=== PATIENT | male | born 1965 | race Caucasian/White ===

== ENCOUNTER 2017-07-06 12:47 | Inpatient (IN) | payer BC, OTHER ==
[~2017-07-06] VITALS: Ht 180.3 cm; Wt 56.7 kg
--- NOTE | 2017-07-06 19:50 | NUR ---
Pre-admission assessment Patient is a 51-year old, male, seen at intake, AAOx4, no SOB and with moderate anxiety noted at this time. Discussed with patient admission policies of the unit. Patient is coherent and able to respond to questions appropriately. Patient reported that he is from [place]. Pt is ambulatory with steady gait. Pt reports using these substances: ETOH-beer daily at the current rate for the past 25 years and Cannabis smoking intermittently, once every 2 weeks on average, smoking 1-2 joints for the past 34 years. Vital signs taken and as follows: ZX=551/88, P=87, O2 sat on RA=99%, RR=20, T=98.4. Pt verbalized instructions and teachings regarding disposal of narcotic and other controlled home meds, unit protocols such as taking of vital signs Q4H and handling and disposal of contraband.
[2017-07-06 20:03] LABS: *AMPHETAMINE, URINE NEGATIVE (NEGATIVE); *BARBITURATE, URINE NEGATIVE (NEGATIVE); *CANNABINOID, URINE NEGATIVE (NEGATIVE); *COCCAINE, URINE NEGATIVE (NEGATIVE); *OPIATE, URINE NEGATIVE (NEGATIVE); *PHENCYCLIDINE SCREEN,URINE NEGATIVE (NEGATIVE)
[2017-07-06 20:10] VITALS: BP 152/90
--- NOTE | 2017-07-06 20:30 | NUR ---
ADMISSION Patient is a 51-year old, male, admitted and escorted by VENEER LAYER at 2009 to unit. Patient verbalized that he is from [place], works as a sign painter and lives in a trailer car with his brother. Skin check done, no open skin noted. Patient denies Suicidal Ideation nor Homicidal Ideation. No edema noted. Pt is ambulatory with steady gait. Pt stands 5'11" and weighs 125 pounds per standing scale. Vital signs are as follows: BP-152/89, T-98.4, P-846 RR-18 and SPO2 on RA=98%. Patient is AAOx4 and with no anxiety noted at this time. Lung sounds clear bilaterally upon auscultation. No cough noted and bowel sounds are present on all quadrants. PERRLA and pupils are 3 mm upon visual check. Pt has NKA, on Regular Diet and is Full Code. Pt reports withdrawal-induced seizures from Alcohol, first was in 05/2017 and the last was in 06/15/2017. Per pt, withdrawal symptoms are tremors, anxiety, hot flushes and fatigue. Pt reports using these substances daily: 1) ETOH (beer)-Started at age 17, patient reports consuming beer daily at the following rate for 25 years: a) on [id number] 16-0z beer, b) on weekends(Monday, Monday and Monday)-18-27 12-oz beer. Last drink was 07/02/2017, 12 of 16-oz beers. 2) Cannabis-Started at age 17, patient reports smoking intermittently, once every 2 weeks on average, smoking 1-2 joints for the past 34 years. Last use was 06/20/2017 and smoked 1 joint. Patient verbalized the he does not take other substances besides the one mentioned above. Patients UDS returned positive for Benzodiazepines. Patient informed that he was given Klonopin at the ER of [facility] in [place] yesterday when he drove himself to the ER due to vomiting. Patient informed PMHx of Anxiety, Alcohol Liver Disease and Delirium Tremens. Per pt, he only takes Aspirin 325 mg PO PRN daily everytime he has a headache. No PCP nor Psych MD as of the moment. Patient reports smoking cigarettes, about 15 cigarette sticks daily. Oriented patient to room and instructed with the use of the call light, placed within reach. Fall, universal, seizure and safety precautions implemented. No c/o significant pain at this time. All needs met. Information relayed to Dr. Chun. Patient refused PNA vaccine and Flu vaccine is out of season. CIWA=10. Will continue to monitor.
[2017-07-06 20:36] LABS: ALANINE AMINOTRANSFERASE 71 U/L (16-63); ALKALINE PHOSPHATASE 112 U/L (50-136); AMYLASE 77 U/L (25-115); ASPARTATE AMINOTRANSFERASE 65 U/L (15-37); BASOPHILS # (AUTO) 0.1 K/uL (0.0-8.0); BASOPHILS % (AUTO) 0.9 % (0.0-2.0); BILIRUBIN,TOTAL 0.8 mg/dL (0.2-1.0); CARBON DIOXIDE 32 mmol/L (21-32); CHLORIDE 95 mmol/L (98-107); CREATININE 0.6 mg/dL (0.6-1.3); EOSINOPHILS # (AUTO) 0.2 K/uL (0.0-0.7); GLUCOSE 102 mg/dL (74-106); HEMATOCRIT 45.3 % (40-50); HEMOGLOBIN 15.5 G/DL (14.0-18.0); LYMPHOCYTES # (AUTO) 2.4 K/UL (0.8-4.8); LYMPHOCYTES % (AUTO) 31.7 % (20.5-51.5); MAGNESIUM 1.7 mg/dL (1.8-2.4); MEAN CORPUSCULAR HGB CONC 34 g/dL (32.0-37.0); MEAN CORPUSCULAR VOLUME 96.6 FL (82.0-92.0); MONOCYTES # (AUTO) 0.9 K/UL (0.1-1.30); MONOCYTES % (AUTO) 11.3 % (0.0-11.0); NEUTROPHILS # (AUTO) 4.1 K/UL (1.8-8.9); NEUTROPHILS % (AUTO) 54.1 % (38.5-71.5); PLATELET COUNT (AUTO) 188 K/UL (150-450); POTASSIUM 5.2 mmol/L (3.5-5.1); RED BLOOD CELL COUNT(AUTO) 4.69 MIL/UL (4.7-6.1); TOTAL PROTEIN, SERUM 8.5 g/dL (6.4-8.2); UREA NITROGEN, BLOOD 5 mg/dL (7-18); WHITE BLOOD COUNT (AUTO) 7.7 K/UL (4.0-11.2)
[2017-07-06 20:40] LABS: ETHANOL < 3 MG/DL (0-0)
[2017-07-06] MEDS ORDERED: ONDA4TAB10 PO (20:51)
[2017-07-06] MEDS ORDERED: ASPI-612 PO (20:51)
--- NOTE | 2017-07-06 21:42 | NUR ---
RN note PRN Clonidine Pt's GE=263/94, Pulse=88. Administered Clonidine 0.1 mg PO as ordered. Will reassess.
[2017-07-06 22:10] VITALS: BP 150/89
--- NOTE | 2017-07-06 22:45 | NUR ---
RN note reassess DH=812/82. Clonidine effective.
[2017-07-07] VITALS: BP 118/76
[2017-07-07 04:00] VITALS: BP 105/56
--- NOTE | 2017-07-07 07:03 | NUR ---
End of Shift Patient is a 51-year old, male, admitted for Alcohol Dependence. Pt with NKA, on Regular Diet and is Full Code. With reported history of Anxiety, Alcohol Withdrawal-induced Seizures in May and Jun of this year, Alcohol Liver Disease and DTs. On PRN medications for withdrawal symptoms. Pt is AAOx4, and with mild anxiety noted. With no SOB observed. Pt is ambulatory with steady gait. No skin issues. Fall, universal, seizure and safety prec in place. Call light within reach. Latest CIWA=5, slept for 7 hours. Endorsed to AM shift nurse for continuity of care.
--- NOTE | 2017-07-07 07:05 | NUR ---
Start of Shift Endorsement received from nightshift nurse. Pt is a 51 y/o male admitted for alcohol dependence. Pt has not been placed on a taper and will be treated by PRN medications. Pt has received a one time dose of Ativan during nightshift. Pt did not receive any PRN medications. PT reports sleeping 7 hours. Pt is alert and oriented x4. VS WNL. Full code. PT is alert and oriented x4. Pt is in STABLE condition at this time. Remains compliant with medication and diet regimen. All needs have been met, All safety measures in place per hospital policy. Bed in lowest position, side rails up x2, call-light within reach. Will continue to monitor
[2017-07-07 08:00] VITALS: BP 113/80
[2017-07-07 12:00] VITALS: BP 125/77
[2017-07-07 16:00] VITALS: BP 135/83
--- NOTE | 2017-07-07 18:57 | NUR ---
End of Shift Endorsement given to nightshift nurse. Pt is a 51 y/o male admitted for alcohol dependence. Pt has not been placed on a taper and will be treated by PRN medications. Pt did not receive any PRN medications. Pt will continue to be monitored and will began a modified Ativan taper if pt received two consecutive orders of Ativan. Pt participated in groups and activities. Pt is mildly withdrawing AEB CIWA 4. Pt is alert and oriented x4. VS WNL. Full code. PT is alert and oriented x4. Pt is in STABLE condition at this time. Remains compliant with medication and diet regimen. All needs have been met, All safety measures in place per hospital policy. Bed in lowest position, side rails up x2, call-light within reach. Will continue to monitor
[2017-07-07 20:00] VITALS: BP 148/95
--- NOTE | 2017-07-07 20:00 | NUR ---
Start of Shift Patient is a 51-year old, male, admitted for Alcohol Dependence. Pt with NKA, on Regular Diet and is Full Code. With reported history of Anxiety, Alcohol Withdrawal-induced Seizures in May and Jun of this year, Alcohol Liver Disease and DTs. On modified Ativan taper and PRN medications for withdrawal symptoms. Pt is AAOx4, and with mild anxiety noted. With no SOB observed. Pt is ambulatory with steady gait. No skin issues. Fall, universal, seizure and safety prec in place. Call light within reach. Latest CIWA=5. Will continue to monitor.
--- NOTE | 2017-07-07 20:12 | NUR ---
RN note PRN Clonidine Pt with KS=405/95, P=92. Administered Clonidine 0.1 mg PO PRN as ordered. Will recheck BP.
--- NOTE | 2017-07-07 21:15 | NUR ---
RN note reassess Pt's BP [id number]=411/86, pulse=87. Clonidine effective.
[2017-07-08] VITALS: BP 112/82
[2017-07-08 04:00] VITALS: BP 116/79
[2017-07-08 06:07] LABS: HEPATITIS B SURFACE AG Negative (Negative)
--- NOTE | 2017-07-08 07:06 | NUR ---
End of Shift Patient is a 51-year old, male, admitted for Alcohol Dependence. Pt with NKA, on Regular Diet and is Full Code. With reported history of Anxiety, Alcohol Withdrawal-induced Seizures in May and Jun of this year, Alcohol Liver Disease and DTs. On modified Ativan taper and PRN medications for withdrawal symptoms. Pt is AAOx4, and with mild anxiety noted. With no SOB observed. Pt is ambulatory with steady gait. No skin issues. Fall, universal, seizure and safety prec in place. Call light within reach. Latest CIWA=3, slept for 8 hours. Endorsed to AM shift nurse for continuity of care.
--- NOTE | 2017-07-08 07:15 | NUR ---
Start of shift note SBAR report rcv'd. Pt was admitted for ETOH dependence. Pt has a PMHx of alcoholic liver disease, seizure, DT's and anxiety. Pt is on a regular diet, denies any allergies and is a full code. Pt is on a custom ativan taper, ending 07/09/17. Per report, pt is tolerating well without any ASE. Pt is comfortable at this time. Will continue to monitor pt. All needs addressed at this time.
[2017-07-08 08:00] VITALS: BP 119/87
[2017-07-08 08:18] LABS: CREATININE 0.8 mg/dL (0.6-1.3); MAGNESIUM 1.7 mg/dL (1.8-2.4); POTASSIUM 5.1 mmol/L (3.5-5.1)
[2017-07-08 12:00] VITALS: BP 143/78
--- NOTE | 2017-07-08 14:27 | NUR ---
Endorsement Pt endorsed to RN. Pt is stable, has no complaints at this time.
[2017-07-08 16:44] VITALS: BP 135/88
--- NOTE | 2017-07-08 19:00 | NUR ---
Start of Shift Patient Received. Patient is in activities room participating in group activities. Patient is a 51 year old male admitted on 07/06/17 for ETOH Dependence and is currently receiving a modified 4 day Ativan taper. Patient verbalizes no known allergies, wishes to be full code, following a regular diet, placed on fall and seizure precautions, and skin noted intact. Patient verbalizes past medical history of Alcoholic Liver Disease, DTs, Anxiety, and history of seizures with last seizure noted to be 06/15/17. Per endorsement, patient is compliant with plan of care and is tolerating medications well. No PRN medications administered. All needs attended to promptly. Will continue plan of care as ordered.
--- NOTE | 2017-07-08 19:02 | NUR ---
End of Shift Mobile Marketing Manager provided report on 51 year old male admitted on 07/06/17 for ETOH detoxification. Pt reports NKA, regular diet and full code. Reports PMH of alcoholic liver disease, Delirium Tremens and anxiety. Pt currently on a modified Ativan taper, tolerating well. Last CIWA 2, recorder at last scheduled assessment. Pt is A/O x4, makes needs known. Pt is calm and cooperative, able to make needs known. Pt is pleasant and polite. Bright affect with congruent mood. Bed in low position with wheels locked and side rails up x2, call light within reach. Will continue to monitor, support and encourage according to plan of care.
[2017-07-08 20:01] VITALS: BP 139/90
[2017-07-09 00:31] VITALS: BP 129/76
[2017-07-09 04:39] VITALS: BP 113/76
--- NOTE | 2017-07-09 07:08 | NUR ---
End of Shift Patient is in bed sleeping. Breathing even and non labored. No signs of pain or discomfort noted. Patient is a 51 year old male admitted on 07/06/17 for ETOH Dependence and is currently receiving a modified 4 day Ativan taper. No known allergies, full code, Regular diet, placed on fall and seizure precautions, and skin noted intact. Patient verbalizes past medical history of Alcoholic Liver Disease, DTs, Anxiety, and history of seizures with last seizure noted to be 06/15/17. Patient is compliant with plan of care and is tolerating medications well. No PRN medications administered. Last noted CIWA 2. All needs attended to promptly. Will endorse to continue plan of care as ordered.
--- NOTE | 2017-07-09 07:35 | NUR ---
START OF SHIFT Rcvd endorsement from ongoing nurse, client is in room, he is a/ox4, he presents with anxious mood, flat affect, fine tremors, and flushed face. He reports anxiety, difficulty sleeping, restless legs, decreased appetite, fatigue, and chills. Encourage client to attend group therapy for skills to maintain sober, he verbalized understanding and said, "I will go to groups."Encourage client to increase PO fluid intake as tolerated to facilitate detox. Client is a 51 yo male, admitted to [facility] for withdrawal from alcohol. He had been receiving PRN Ativan for management of withdrawal symptoms, he received a schedule dose last night @ 2100, last dose schedule @ 0900 today, tolerating well without any ASE. Client had an uneventful night, he slept 8 hrs. Client reported NKA, full code, regular diet. Client reports hx of withdrawal-induced seizure (06/15/17). Side rails x 2 up/padded, bed in lowest/lock position. Call light within reach.
[2017-07-09 08:42] VITALS: BP 130/91
--- NOTE | 2017-07-09 09:10 | NUR ---
Zero induration noted @ TB site on Left forearm.
[2017-07-09 12:00] VITALS: BP 123/83
[2017-07-09] MEDS ORDERED: DIPH50CA37 PO (15:14)
[2017-07-09] MEDS ORDERED: AMLO5TAB2 PO (15:14)
[2017-07-09] MEDS ORDERED: THIA100T13 PO (15:14)
[2017-07-09] MEDS ORDERED: ONDA4TAB11 SL (15:14)
[2017-07-09] MEDS ORDERED: IBUP-1953 PO (15:14)
[2017-07-09] MEDS ORDERED: MULT-24 PO (15:14)
[2017-07-09] MEDS ORDERED: GABA-534 PO (15:14)
[2017-07-09] MEDS ORDERED: FOLI1TAB16 PO (15:14)
[2017-07-09 16:55] VITALS: BP 132/86
--- NOTE | 2017-07-09 18:45 | NUR ---
END OF SHIFT Client is a 51 yo male, a/ox 4, admitted to [facility] for withdrawal from alcohol. He completed a modified Ativan taper, tolerated well, with no ASE.Last CIWA 3 @ 1600. Adequate PO intake 2505mL, void x 8, stool x 2. Client was compliant with group therapy. Zero Client reported NKA, full code, regular diet. Client reports hx of withdrawal-induced seizure (06/15/17). Side rails x 2 up/padded, bed in lowest/lock position. Call light within reach. Addendum: 07/09/17 at 1846 by DIVYA MORALES RN Zero induration noted at TB site on Left forearm.
[2017-07-09 20:00] VITALS: BP 140/85
--- NOTE | 2017-07-09 20:00 | NUR ---
START OF SHIFT Patient is a 51-year-old male admitted 07/06/17 for ETOH dependence, placed on modified Ativan taper. Patient reported drinking 8-12 16 ounce beers on the weekdays and 18-27 12 ounce beers on the weekends. Patient reports using Marijuana every 2 weeks 1-2 joints. Past medical history includes alcoholic liver disease, seizures on 06/15/2017 and 05/2017 due to alcohol withdrawal, DTs, and anxiety. Pt is NKA, regular diet, FULL CODE. Patient is on fall and seizure precautions. Upon assessment, patient presents with anxiety, skin is noted to be flushed, respirations even and unlabored, denies SOB and chest pain, denies N/V/D, skin is intact. Patient completed taper, is scheduled for discharge tomorrow. Safety measures in place, call light in place, siderails up x2, bed locked and in low position. Will continue to monitor.
--- NOTE | 2017-07-09 21:10 | NUR ---
PRN BENADRYL Patient requested aid to help him sleep. Benadryl 50mg administered. Safety measures in place, will continue to monitor.
--- NOTE | 2017-07-09 22:10 | NUR ---
PRN REASSESSMENT Upon assessment, patient is in bed resting with eyes closed, respirations even and unlabored. Safety measures in place, will continue to monitor.
--- NOTE | 2017-07-10 | NUR ---
VITAL SIGNS Patient vital signs as follows: BP 140/84, HR 88, RR 16, 98%, 98.0 F, no pain. CIWA deferred due to patient sleeping. To assess while patient is awake as ordered. Safety measures in place, will continue to monitor.
[2017-07-10 00:47] VITALS: BP 140/84
[2017-07-10 04:00] VITALS: BP 122/80
--- NOTE | 2017-07-10 04:00 | NUR ---
VITAL SIGNS BP 122/80, HR 90, RR 16, O2 sat 98%, temp. 98.0 F, pain 0/10. CIWA deferred, patient sleeping, to assess while patient is awake as ordered. Safety measures in place, will continue to monitor.
--- NOTE | 2017-07-10 07:00 | NUR ---
END OF SHIFT Patient is a 51-year-old male admitted 07/06/17 for ETOH dependence, placed on modified Ativan taper. Patient reported drinking 8-12 16 ounce beers on the weekdays and 18-27 12 ounce beers on the weekends. Patient reports using Marijuana every 2 weeks 1-2 joints. Past medical history includes alcoholic liver disease, seizures on 06/15/2017 and 05/2017 due to alcohol withdrawal, DTs, and anxiety. Pt is NKA, regular diet, FULL CODE. Patient is on fall and seizure precautions. During shift, patient presented with anxiety, skin is noted to be flushed, scheduled medications administered, CIWA score 2. Benadryl 50mg administered for sleep, effective. Patient slept for 6 hours, intake 2082 mL, void x3, stool x1. Patient is scheduled for discharge today. Safety measures in place, call light in place, siderails up x2, bed locked and in low position. Endorsed to day shift nurse.
--- NOTE | 2017-07-10 07:08 | NUR ---
Start of Shift Endorsement received from nightshift nurse. Pt is a 51 y/o male admitted for alcohol dependence. Pt has been placed on a Ativan taper. Pt has completed the taper and has been scheduled to be discharged today. Pt is tolerating the detox process AEB CIWA2. Pt has received discharge teaching. All discharge documentation has been completed. Pt received PRN Benadryl. PT reports sleeping 6 hours, reports feeling rested and ready for discharge. Pt is alert and oriented x4. VS WNL. Full code. PT is alert and oriented x4. Pt is in STABLE condition at this time. Remains compliant with medication and diet regimen. All needs have been met, All safety measures in place per hospital policy. Bed in lowest position, side rails up x2, call-light within reach. Will continue to monitor
[2017-07-10 08:00] VITALS: BP 150/85
[2017-07-10 08:37] VITALS: BP 150/89
--- NOTE | 2017-07-10 11:40 | NUR ---
Discharge note PT has been discharged from [facility] to [facility]. PT is in Stable condition, VS WNL. Denies suicidal and homicidal ideations at this time. . All documentation has been completed, paperwork signed and dated. Pt left with all of his belongings, medications and prescriptions. Pt has been discharged from [facility] on 07/10/17 at 1140. has been Notified.
== END 2017-07-10 11:40 | disposition other institution (70) | DRG 895 ==
LOC: SRC 18:13
PROVIDERS: ADMIT Internal Medicine; ATTEND Internal Medicine
PROC: HZ2ZZZZ Detoxification Services for Substance Abuse Treatment (ICD-10-PCS; principal; 2017-07-06)
PROC: HZ41ZZZ Group Counseling for Substance Abuse Treatment, Behavioral (ICD-10-PCS; 2017-07-07)
DX: F10.230 Alcohol dependence with withdrawal, uncomplicated (principal); E87.8 Other disorders of electrolyte and fluid balance, not elsewhere classified; I15.9 Secondary hypertension, unspecified; E87.1 Hypo-osmolality and hyponatremia; K70.10 Alcoholic hepatitis without ascites; E83.42 Hypomagnesemia; E87.5 Hyperkalemia; Y90.0 Blood alcohol level of less than 20 mg/100 ml; F41.9 Anxiety disorder, unspecified; F17.210 Nicotine dependence, cigarettes, uncomplicated; E86.1 Hypovolemia; F13.90 Sedative, hypnotic, or anxiolytic use, unspecified, uncomplicated; F32.9 Major depressive disorder, single episode, unspecified
CPT/HCPCS: 36415; 70030-TC; 80307; 80346; 83735; 85025; 86580; 86592; 86705; 86803; 87340; 87806; A4663; G0480; Q0163